=== PATIENT | female | born 1980 | race American Indian/Alaskan Native ===

== ENCOUNTER 2019-02-21 10:22 | Emergency (ER) | payer OTHER ==
[2019-02-21 10:27] VITALS: BP 127/82
[2019-02-21] MEDS ORDERED: IBUPROFEN PO ONE (11:21)
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
== END 2019-02-21 14:00 | disposition home or self-care (01) ==
LOC: ED 10:22
DX: S20.219A Contusion of unspecified front wall of thorax, initial encounter (principal); S00.83XA Contusion of other part of head, initial encounter; F17.200 Nicotine dependence, unspecified, uncomplicated; F12.10 Cannabis abuse, uncomplicated; V89.2XXA Person injured in unspecified motor-vehicle accident, traffic, initial encounter; Y93.89 Activity, other specified; Y92.488 Other paved roadways as the place of occurrence of the external cause; Y99.8 Other external cause status
CPT/HCPCS: 70150; 71111; 99283